=== PATIENT | female | born 1995 | race Caucasian/White ===

== ENCOUNTER → 2020-11-07 14:04 | Outpatient (CLI) | payer OTHER, SELFPAY ==
[2016-12-25 19:50] VITALS: BMI 24.2
[2020-11-07 16:07] LABS: hCG Titer Quant., Serum 42 mIU/mL (1-3)
== END ==
PROVIDERS: PCP Family Medicine; Visit Provider Obstetrics & Gynecology
DX: O20.0 Threatened abortion (principal); Z3A.00 Weeks of gestation of pregnancy not specified
CPT/HCPCS: 36415; 84702

== ENCOUNTER → 2020-11-09 08:53 | Outpatient (CLI) | payer OTHER, SELFPAY ==
[2020-11-09 14:25] LABS: hCG Titer Quant., Serum 13 mIU/mL (1-3)
== END ==
PROVIDERS: Obstetrics & Gynecology; PCP Family Medicine; Visit Provider Obstetrics & Gynecology
DX: O20.0 Threatened abortion (principal); Z3A.00 Weeks of gestation of pregnancy not specified
CPT/HCPCS: 36415; 84702

== ENCOUNTER → 2021-01-26 | Outpatient (CLI) | payer OTHER, SELFPAY ==
[2016-12-25 19:50] VITALS: BMI 24.2
[2021-01-31 13:12] LABS: HPV Reflexed? NOT INDICATED
== END | disposition home or self-care (01) ==
LOC: LABSPEC 16:01
PROVIDERS: Visit Provider Obstetrics & Gynecology
DX: Z12.4 Encounter for screening for malignant neoplasm of cervix (principal)
CPT/HCPCS: 88175; G0145

== ENCOUNTER → 2021-08-14 16:23 | Outpatient (CLI) | payer OTHER, SELFPAY ==
[2021-08-14 17:47] LABS: Absolute Lymphocyte Count 1.95 X10^3/uL (0.83-4.51); Absolute Neutrophil Count 4.9 X10^3/uL (2.0-7.7); Basophil# 0.02 X10^3/uL; Basophil% 0.3 % (0-1); Eosinophil# 0.07 X10^3/uL; Eosinophils% 0.9 % (0-5); Hematocrit 38.3 % (37-47); Lymphocyte # 1.95 X10^3/ul (0.83-4.51); Lymphocyte % 26.1 % (19-41); Mean Corp Hgb Conc 33.9 g/dL (32-36); Mean Corpuscular Hgb 28.1 pg (27.0-32.0); Mean Corpuscular Volume 82.7 fL (81-99); Mean Platelet Vol. 11.5 fl (6.2-12.0); Monocyte# 0.47 X10^3/uL; Monocyte% 6.3 % (0-10); NRBC Flagged by Analyzer 0 % (0-5); Neutrophil # 4.94 X10^3/uL (2.7-7.7); Neutrophil % 66.1 % (47-70); Platelet Count 213 K/mm3 (150-450); RBC Distribution Width CV 11.9 % (11.6-14.6); RBC Distribution Width SD 35.8 fl (35.1-43.9); Red Blood Count 4.63 M/mm3 (4.2-5.4); White Blood Count 7.5 K/mm3 (4.4-11.0)
[2021-08-15 09:38] LABS: HIV - WCH Non-Reactive (Nonreactive); Hepatitis B Surface Antigen Non-Reactive (Nonreactive); Hepatitis C Antibody Non-Reactive (Nonreactive); Syphilis Antibodies Non-reactive
[2021-08-20 00:06] LABS: Chlamydia By Nucleic Acid AMP Negative (Negative)
[2021-08-20 13:40] LABS: Gonococcus By Nucleic Acid AMP Negative (Negative)
== END ==
PROVIDERS: Visit Provider Obstetrics & Gynecology
DX: Z34.81 Encounter for supervision of other normal pregnancy, first trimester (principal); Z11.3 Encounter for screening for infections with a predominantly sexual mode of transmission
CPT/HCPCS: 36415; 85025; 86703; 86762; 86780; 86803; 87086; 87088; 87340; 87491; 87591

== ENCOUNTER 2022-01-03 08:38 | Outpatient (CLI) | payer OTHER, SELFPAY ==
[2022-01-03 09:32] LABS: Hematocrit 34.9 % (37-47); Hemoglobin 11.6 g/dL (12.0-15.0); Mean Corp Hgb Conc 33.2 g/dL (32-36); Mean Corpuscular Hgb 29.5 pg (27.0-32.0); Mean Corpuscular Volume 88.8 fL (81-99); Mean Platelet Vol. 10.8 fl (6.2-12.0); Platelet Count 144 K/mm3 (150-450); RBC Distribution Width CV 12.3 % (11.6-14.6); RBC Distribution Width SD 40.3 fl (35.1-43.9); Red Blood Count 3.93 M/mm3 (4.2-5.4)
[2022-01-03 09:38] LABS: Glucose Challenge Gest 1H 50g 98 mg/dL (70-140)
== END 2022-01-03 23:59 | disposition home or self-care (01) ==
LOC: WOBLAB 08:39
PROVIDERS: Visit Provider Obstetrics & Gynecology
DX: Z34.83 Encounter for supervision of other normal pregnancy, third trimester (principal)
CPT/HCPCS: 36415; 82950; 85027

== ENCOUNTER → 2022-02-26 | Outpatient (CLI) | payer OTHER, SELFPAY ==
[2022-02-26 17:31] LABS: Hematocrit 36.9 % (37-47); Hemoglobin 12.4 g/dL (12.0-15.0); Mean Corp Hgb Conc 33.6 g/dL (32-36); Mean Corpuscular Hgb 29.5 pg (27.0-32.0); Mean Corpuscular Volume 87.9 fL (81-99); Mean Platelet Vol. 11.3 fl (6.2-12.0); Platelet Count 138 K/mm3 (150-450); RBC Distribution Width CV 13.1 % (11.6-14.6); RBC Distribution Width SD 41.5 fl (35.1-43.9)
== END | disposition home or self-care (01) ==
LOC: WOBLAB 16:20
PROVIDERS: Visit Provider Obstetrics & Gynecology
DX: O36.8290 Fetal anemia and thrombocytopenia, unspecified trimester, not applicable or unspecified (principal); Z36.85 Encounter for antenatal screening for Streptococcus B; Z3A.00 Weeks of gestation of pregnancy not specified
CPT/HCPCS: 36415; 85027; 87077; 87081; 87186

== ENCOUNTER 2022-03-25 11:05 | Inpatient (IN) | payer OTHER, SELFPAY ==
[2022-03-25] VITALS (52 sets, daily range): BP systolic 89–130; BP diastolic 53–84; PULSE 78–155; TEMP 35.8–36.8; O2SAT 81–99; BMI 32.8
[2022-03-25 11:03] LABS: ROM Internal Control Test YES-OK TO RESULT pt. (Internal QC)
[2022-03-25 11:04] LABS: ROM Patient Test POSITIVE (Negative)
[2022-03-25] MEDS: Lactated Ringers 1,000 ML 50 ML IV (11:28)
[2022-03-25 11:44] LABS: Absolute Lymphocyte Count 1.06 X10^3/uL (0.83-4.51); Absolute Neutrophil Count 5.4 X10^3/uL (2.0-7.7); Basophil# 0.01 X10^3/uL; Basophil% 0.1 % (0-1); Eosinophil# 0.07 X10^3/uL; Hematocrit 37.6 % (37-47); Hemoglobin 12.8 g/dL (12.0-15.0); Lymphocyte # 1.06 X10^3/ul (0.83-4.51); Lymphocyte % 15.1 % (19-41); Mean Corpuscular Hgb 29.2 pg (27.0-32.0); Mean Corpuscular Volume 85.6 fL (81-99); Mean Platelet Vol. 10.8 fl (6.2-12.0); Monocyte# 0.48 X10^3/uL; Monocyte% 6.8 % (0-10); NRBC Flagged by Analyzer 0 % (0-5); Neutrophil # 5.36 X10^3/uL (2.7-7.7); Neutrophil % 76.3 % (47-70); Platelet Count 134 K/mm3 (150-450); RBC Distribution Width CV 13.2 % (11.6-14.6); RBC Distribution Width SD 40.9 fl (35.1-43.9); Red Blood Count 4.39 M/mm3 (4.2-5.4)
--- NOTE | 2022-03-25 12:54 | HP.PCM.OB_ITS ---
HPI - General General Date of Admission: 03/25/22 Date of Service: 03/25/22 Chief Complaint: leaking of fluid HPI Narrative KAROL HOLDER, is a 26 F @ 39 6/7 weeks gestation by LMP 06/19/21 (MONIE 03/26/22) who presents with c/o leaking of amniotic fluid since 0445h this morning. Fluid is clear. Denies contractions or vaginal bleeding. + FM. Denies headache, vision changes. PFSH PFSH Medical History Gestational thrombocytopenia Home Medications umipygvw-[id number]-Kc-FA 1 mg tablet 1 tab PO DAILY 03/25/22 [History Last Taken 03/24/22] Allergy/AdvReac Type Severity Reaction Status Date / Time No Known Allergies Allergy Verified 03/25/22 11:40 Family History (Updated 03/25/22 @ 12:[address] Bee Lanier MD) Grandmother Breast cancer Other Heart disease Surgical History History of appendectomy Social History (Updated 03/25/22 @ 12:[address] Bee Lanier MD) Smoking Status: Never smoker alcohol intake: never substance use type: does not use History 2 Elective abortions Hx Para 0 Spontaneous abortions 1 Hx # Term Pregnancies Ectopic pregnancies Hx # Pregnancies Multiple births # of living children NST FHR Rate Baby A Baseline: 120 Variability:: Moderate Accelerations:: 15 x 15 Decelerations:: None NST Reactive:: Yes FHR Category:: Category I Uterine Activity:: 10/01 Vital Signs Vital Signs Vital Signs: 03/25/22 10:47 03/25/22 10:47 03/25/22 11:30 Temperature 98.2 F Temperature Source Pulse Rate 104 H Blood Pressure 114/78 BP Systolic 114 BP Diastolic 78 03/25/22 11:30 Temperature Temperature Source Temporal Pulse Rate Blood Pressure BP Systolic BP Diastolic Weight Weight: 100.97 kg Body Mass Index (BMI) 32.8 Physical Exam Const alert, oriented x3 and no apparent distress HEENT normocephalic Resp normal respiratory effort, normal air movement and clear to auscultation bilaterally Cardio regular rate and regular rhythm GI normal to inspection, nondistended, normoactive bowel sounds, soft to palpation, non-tender and non-distended Inspection: gravid Narrative: Recent SVE /-2 per RN Joan Hutchison I performed bedside US confirming cephalic presentation, anterior fundal placent a Labs Labs Labs: Blood Type A POSITIVE Antibody Screen Pending Hct 37.6 % (37-47) Hgb 12.8 g/dL (12.0-15.0) Syphilis Total Ab Non-reactive Hep Bs Antigen Non-Reactive (Nonreactive) Chlamydia DNA (GOYO) Negative (Negative) Neisseria gonorrhoeae DNA (GOYO) Negative (Negative) HIV 1&2 Antibody Non-Reactive (Nonreactive) Glucose 1 Hr 50 gm 98 mg/dL (70-140) Assessment & Plan (1) 39 weeks gestation of : (2) PROM (premature rupture of membranes): PLAN: Plan GBS positive - PCN started Advised pitocin with review of indications, risks, benefits, alternatives. Reviewed increased risk for infection with prolonged rupture of membranes including non-GBS infection risk. Patient declines pitocin at this time. Requests expectant management Encouraged to do nipple stim in interim if not doing pitocin. Will reassess at approximatley 12 hours of ROM
[2022-03-25] MEDS: Penicillin G 3,000,000 Units 50 ML 100 UNITS IV ×2 (16:08→20:48)
[2022-03-25] MEDS: 0.9% Saline Lock 10 ML Syringe IV (16:15)
--- NOTE | 2022-03-25 21:07 | PN.OBGYN_ITS ---
Subjective Subjective Reports feeling pressure Objective Data Objective Data Vital Signs: Vital Signs Temp Pulse BP Pulse Ox 97.2 F L 93 98/53 L 97 03/25/22 19:15 03/25/22 20:36 03/25/22 19:14 03/25/22 20:36 Weight: 100.97 kg Body Mass Index (BMI) 32.8 Intake & Output: Intake and Output for Last 24 Hours 03/23/22 03/24/22 03/25/22 23:59 23:59 23:59 Intake Total 756.67 / 756.67 Output Total 100 / 100 Balance 656.67 / 656.67 Lab / Micro Data Result Diagrams: 03/25/22 11:28 Labs: Laboratory Results - last 24 hr 03/25/22 10:50: Vag Amniotic Fld Detect POSITIVE H 03/25/22 11:28: WBC 7.0, RBC 4.39, Hgb 12.8, Hct 37.6, MCV 85.6, MCH 29.2, MCHC 34.0, RDW Std Deviation 40.9, RDW Coeff of Efrain 13.2, Plt Count 134 L, MPV 10.8, Immature Gran % (Auto) 0.700, Neut % (Auto) 76.3 H, Lymph % (Auto) 15.1 L, [place] % (Auto) 6.8, Eos % (Auto) 1.0, Baso % (Auto) 0.1, Absolute Neuts (auto) 5.4, Absolute Lymphs (auto) 1.06, Nucleated RBC % 0 03/25/22 11:28: Blood Type A POSITIVE, Antibody Screen NEGATIVE Micro: Microbiology 03/25/22 11:35 Nasal Secretion SARS-CoV-2 Antigen (Rapid) - Final Physical Exam Narrative GEN - NAD, AAO x 3 FHR - 120, moderate variability, + accelerations, no decelerations 5/90/-1 TOCO 3/10 min Assessment & Plan (1) 39 weeks gestation of : PLAN: Active labor, Cat I FHR Continue expectant management PCN for GBS ppx (2) PROM (premature rupture of membranes):
[2022-03-25] MEDS: LACTATED RINGERS 500 ML 999 ML IV (22:15)
[2022-03-25] MEDS: fentaNYL-bupivacaine (epidural) 100 ML BAG EPIDURAL (23:20)
[2022-03-26] VITALS (45 sets, daily range): BP systolic 97–135; BP diastolic 48–68; PULSE 79–109; RESP 16; TEMP 36.2–37.2; O2SAT 92–100
[2022-03-26] MEDS: Penicillin G 3,000,000 Units 50 ML 100 UNITS IV ×2 (00:19→04:36)
[2022-03-26] MEDS: Mag Hydrox/Al Hydrox/Simeth 30 ML UDC PO ×2 (00:25→04:36)
[2022-03-26] MEDS: Lactated Ringers 1,000 ML 200 ML IV (02:53)
[2022-03-26] MEDS: fentaNYL-bupivacaine (epidural) 100 ML BAG EPIDURAL (04:24)
[2022-03-26] MEDS: Oxytocin 30 units/NS 500 ml 30 UNITS/500 ML IV.SOLN 334 UNITS IV (06:54)
--- NOTE | 2022-03-26 07:21 | EX.PCM.OBRPT ---
Assessment & Plan (1) 40 weeks gestation of : (2) (spontaneous vaginal delivery): Vaginal Delivery Maternal Presentation Maternal Presentation: Spontaneous Rupture of Membranes Maternal Presentation: PROM Type of Induction: - (nipple stimulation) Operative Information Date of Procedure: 03/26/22 Pre-Operative Diagnosis: 40 weeks gestation Premature rupture of membranes Post-Operative Diagnosis: 40 weeks gestation Premature rupture of membranes Surgery / Procedure Performed: Spontaneous Vaginal Delivery Type of Anesthesia: Epidural Drain: - (straight cath) Estimated Blood Loss: 300 ml Time of Delivery: 06:43 Findings Description of Procedure: Patient was FD/+4 station. Pushed to deliver a vigorous male . was placed on the maternal abdomen and further attended by nursery personnel. The cord was doubly clamped and cut at 4 minutes of life. The placenta delivered spontaneously and appeared intact on inspection. A second degree perineal laceration was repaired with 3-0 Vicryl Rapide. The fundus was firm and there was good hemostasis. Sponge and needle counts correct x 2. Presentation: Vertex Amniotic Membrane Rupture Type: Spontaneous Time of Membrane Rupture: 03/25/22 0445h Amniotic Fluid Description: Clear Placental Delivery Description: Spontaneous Placenta Disposition: [facility] Cord Vessel Description: 3 Vessels Cord Entanglement: None Nuchal Cord Compression: Without compression A Gender: Male (1 minute): 9 (5 minute): 9 Delayed Cord Clamping: Yes Post Vaginal Delivery Medications Given After Delivery: IV Pitocin Laceration: Midline, Perineal Extension/lac, Vaginal Extension/lac and 2nd degree
[2022-03-26] MEDS: 0.9% Saline Lock 10 ML Syringe IV ×2 (09:26→21:40)
[2022-03-26] MEDS: Acetaminophen 500 MG Tablet 1000 MG PO (10:13)
[2022-03-26] MEDS: Ibuprofen 600 MG Tablet PO ×2 (12:06→20:12)
--- NOTE | 2022-03-26 15:30 | NURSING ---
This RN in room to perform fundal check and vitals. Abdomen distended and firm. Patient reports pain when abdomen is pushed on. Assisted patient to bathroom to void ~ 800 mL out. Reassessed fundus at the umbilicus. Abdomen still somewhat firm. Dr. Damian Oliver notified. Order to place dominguez catheter to let bladder rest. Monitor output.
[2022-03-26] MEDS: Benzocaine/Lanolin/Aloe Vera 1 SPRAY EACH TOPICAL (21:38)
[2022-03-27 00:40] VITALS: BP 102/56; PULSE 82; RESP 16; TEMP 36.6; O2SAT 93
[2022-03-27] MEDS: Ibuprofen 600 MG Tablet PO ×2 (04:18→11:53)
[2022-03-27 04:23] VITALS: BP 106/56; PULSE 71; RESP 16; TEMP 36.2; O2SAT 98
--- NOTE | 2022-03-27 09:01 | PCM.PN.OB ---
Subjective Subjective Patient without complaints. Breast-feeding going well. Wants to go home today. Objective Data Objective Data Vital Signs: Vital Signs Temp Pulse Resp BP Pulse Ox O2 Del Method 97.1 F L 71 16 106/56 L 98 Room Air 03/27/22 04:23 03/27/22 04:23 03/27/22 04:23 03/27/22 04:23 03/27/22 04:23 03/27/22 04:23 Oxygen Delivery Method Room Air Weight: 222 lb 9.6 oz Body Mass Index (BMI) 32.8 Intake & Output: Intake and Output for Last 24 Hours 03/25/22 03/26/22 03/27/22 23:59 23:59 23:59 Intake Total 1306.67 / 1306.67 2870.00 / 2870.00 Output Total 100 / 100 4850 / 4850 Balance 1206.67 / 1206.67 -1980.00 / -1980.00 Lab / Micro Data Result Diagrams: 03/25/22 11:28 Micro: Microbiology 03/25/22 11:35 Nasal Secretion SARS-CoV-2 Antigen (Rapid) - Final Assessment & Plan (1) (spontaneous vaginal delivery): PLAN: Doing well day #1 status post routine spontaneous vaginal delivery. Will discharge to home with routine instructions.
--- NOTE | 2022-03-27 09:03 | DCINST_ITS ---
Discharge Instructions Diet Discharge Diet: No restrictions Activity Discharge Activity: May Drive (In 1 to 2 days if not taking narcotic pain medication), May Shower and May Take a Tub Bath May resume sexual activity in: 4-6 weeks Additional Activity Instructions:: Nothing in the vagina for 4-6 weeks. You may return to work/school in 6 weeks. Dressing / Incision Call your doctor if you observe: Fever of 101 or Higher, Inability to urinate, Inability to have a bowel movement and Using more than 1 pad per hour Follow Up Care When: Call [phone] to make an appointment with your doctor in 6 weeks. Test Results: Test results from this visit will be discussed in further detail at your follow- up appointment, if applicable. Discharge Plan Admission Admit Date/Time: 03/25/22 11:05 Primary Reason for Your Visit: Vaginal Delivery Attending Provider: Bee Martin Discharge Orders/Prescriptions Prescriptions: No Action 1 1 mg Tablet 1 tab PO DAILY Disposition Disposition (needs filled in before D/C Order can be placed): Home, Self Care
[2022-03-27 09:40] VITALS: BP 112/64; PULSE 89; RESP 16; TEMP 35.7
--- NOTE | 2022-03-27 12:02 | NURSING ---
Two tablets of 600mg Motrin tablets given @ 1153. medication scanned and verified prior to administration. computer recognized scanning of two 600 mg Motrin tablets but did not document both scanned. pt took both with RN at bedside before error was recognized. @ 1153 pt took 1200 mg of Motrin.
[2022-03-27 13:34] VITALS: BP 109/68; PULSE 69; RESP 17; TEMP 36.4
--- NOTE | 2022-04-03 16:03 | NURSING ---
Doing well on follow up , andrea Parrish and had good experience.
== END 2022-03-27 16:00 | disposition home or self-care (01) | DRG 806 ==
LOC: WPOUT 11:09 → WP 11:09
PROVIDERS: Admitting Provider Obstetrics & Gynecology; Referring Provider Obstetrics & Gynecology; Visit Provider Obstetrics & Gynecology
DX: O42.92 Full-term premature rupture of membranes, unspecified as to length of time between rupture and onset of labor (principal); Z37.0 Single live birth; O98.82 Other maternal infectious and parasitic diseases complicating childbirth; Z3A.40 40 weeks gestation of pregnancy; B95.1 Streptococcus, group B, as the cause of diseases classified elsewhere; O70.1 Second degree perineal laceration during delivery; O69.81X0 Labor and delivery complicated by cord around neck, without compression, not applicable or unspecified
CPT/HCPCS: 59025; 59050; 76815; 84112; 85025; 86850; 86900; 86901; 87426; 99218; J7120; A4216; G0378

== ENCOUNTER → 2023-12-23 | Outpatient (CLI) | payer OTHER, SELFPAY ==
[2023-12-26 07:08] LABS: Chlamydia By Nucleic Acid AMP Negative (Negative); Gonococcus By Nucleic Acid AMP Negative (Negative)
[2023-12-30 19:14] LABS: HPV Reflexed? NOT INDICATED
== END | disposition home or self-care (01) ==
LOC: LABSPEC 16:58
PROVIDERS: Referring Provider Obstetrics & Gynecology; Visit Provider Obstetrics & Gynecology
DX: Z34.90 Encounter for supervision of normal pregnancy, unspecified, unspecified trimester (principal)
CPT/HCPCS: 87086; 87088; 87491; 87591; 88175; G0145

== ENCOUNTER → 2024-01-23 | Outpatient (CLI) | payer OTHER, SELFPAY ==
[2024-01-23 13:10] LABS: Absolute Lymphocyte Count 1.21 X10^3/uL (0.83-4.51); Absolute Neutrophil Count 4.4 X10^3/uL (2.0-7.7); Basophil# 0.02 X10^3/uL; Basophil% 0.3 % (0-1); Eosinophil# 0.05 X10^3/uL; Eosinophils% 0.8 % (0-5); Hematocrit 35.3 % (37-47); Hemoglobin 12.3 g/dL (12.0-15.0); Lymphocyte # 1.21 X10^3/ul (0.83-4.51); Mean Corp Hgb Conc 34.8 g/dL (32-36); Mean Corpuscular Hgb 28.7 pg (27.0-32.0); Mean Corpuscular Volume 82.3 fL (81-99); Mean Platelet Vol. 11.8 fl (6.2-12.0); Monocyte# 0.32 X10^3/uL; Monocyte% 5.3 % (0-10); NRBC Flagged by Analyzer 0 % (0-5); Neutrophil # 4.42 X10^3/uL (2.7-7.7); Neutrophil % 73.3 % (47-70); Platelet Count 173 K/mm3 (150-450); RBC Distribution Width CV 12.8 % (11.6-14.6); RBC Distribution Width SD 38.2 fl (35.1-43.9); Red Blood Count 4.29 M/mm3 (4.2-5.4)
[2024-01-23 13:54] LABS: Hemoglobin A1c 4.8 % (3.8-5.6)
[2024-01-23 14:32] LABS: HIV - WCH Non-Reactive (Nonreactive); Hepatitis B Surface Antigen Non-Reactive (Nonreactive); Hepatitis C Antibody Non-Reactive (Nonreactive); Rubella IgG Reactive (Nonreactive); Syphilis Antibodies Non-reactive
== END | disposition home or self-care (01) ==
LOC: LAB 11:54
PROVIDERS: PCP Physician Assistant; Referring Provider Obstetrics & Gynecology; Visit Provider Obstetrics & Gynecology
DX: Z34.90 Encounter for supervision of normal pregnancy, unspecified, unspecified trimester (principal)
CPT/HCPCS: 36415; 83036; 85025; 86703; 86762; 86780; 86803; 86850; 86900; 86901; 87340

== ENCOUNTER → 2024-03-10 | Outpatient (CLI) | payer OTHER, SELFPAY | END | disposition home or self-care (01) | LOC: LAB 16:08 | PROVIDERS: PCP Physician Assistant; Referring Provider Advanced Practice Midwife; Visit Provider Advanced Practice Midwife | DX: Z34.90 Encounter for supervision of normal pregnancy, unspecified, unspecified trimester (principal); Z3A.00 Weeks of gestation of pregnancy not specified | CPT/HCPCS: 36415 ==

== ENCOUNTER → 2024-04-15 | Outpatient (CLI) | payer OTHER, SELFPAY ==
[2024-04-15 13:50] LABS: Absolute Lymphocyte Count 1.31 X10^3/uL (0.83-4.51); Absolute Neutrophil Count 5.1 X10^3/uL (2.0-7.7); Basophil# 0.01 X10^3/uL; Basophil% 0.1 % (0-1); Eosinophil# 0.09 X10^3/uL; Eosinophils% 1.3 % (0-5); Hematocrit 32.5 % (37-47); Hemoglobin 10.9 g/dL (12.0-15.0); Lymphocyte # 1.31 X10^3/ul (0.83-4.51); Lymphocyte % 18.7 % (19-41); Mean Corp Hgb Conc 33.5 g/dL (32-36); Mean Corpuscular Hgb 28.8 pg (27.0-32.0); Mean Corpuscular Volume 85.8 fL (81-99); Mean Platelet Vol. 10.7 fl (6.2-12.0); Monocyte# 0.41 X10^3/uL; Monocyte% 5.9 % (0-10); NRBC Flagged by Analyzer 0 % (0-5); Neutrophil # 5.11 X10^3/uL (2.7-7.7); Neutrophil % 73.1 % (47-70); Platelet Count 145 K/mm3 (150-450); RBC Distribution Width CV 13.2 % (11.6-14.6); RBC Distribution Width SD 41.3 fl (35.1-43.9); Red Blood Count 3.79 M/mm3 (4.2-5.4)
[2024-04-15 14:13] LABS: Glucose Challenge Gest 1H 50g 102 mg/dL (70-140)
[2024-04-15 14:57] LABS: HIV - WCH Non-Reactive (Nonreactive); Syphilis Antibodies Non-reactive
== END | disposition home or self-care (01) ==
PROVIDERS: PCP Physician Assistant; Referring Provider Nurse Practitioner Women's Health; Visit Provider Nurse Practitioner Women's Health
DX: Z34.92 Encounter for supervision of normal pregnancy, unspecified, second trimester (principal); Z3A.22 22 weeks gestation of pregnancy
CPT/HCPCS: 36415; 82950; 85025; 86703; 86780

== ENCOUNTER → 2024-06-25 | Outpatient (CLI) | payer OTHER, SELFPAY ==
[2024-06-25 09:46] LABS: Absolute Lymphocyte Count 1.09 X10^3/uL (0.83-4.51); Absolute Neutrophil Count 4.7 X10^3/uL (2.0-7.7); Basophil# 0.01 X10^3/uL; Basophil% 0.2 % (0-1); Eosinophil# 0.09 X10^3/uL; Eosinophils% 1.4 % (0-5); Hematocrit 34.6 % (37-47); Hemoglobin 11.6 g/dL (12.0-15.0); Lymphocyte # 1.09 X10^3/ul (0.83-4.51); Lymphocyte % 16.8 % (19-41); Mean Corp Hgb Conc 33.5 g/dL (32-36); Mean Corpuscular Hgb 29.4 pg (27.0-32.0); Mean Corpuscular Volume 87.6 fL (81-99); Mean Platelet Vol. 10.5 fl (6.2-12.0); Monocyte# 0.58 X10^3/uL; Monocyte% 8.9 % (0-10); NRBC Flagged by Analyzer 0 % (0-5); Neutrophil # 4.67 X10^3/uL (2.7-7.7); Neutrophil % 71.9 % (47-70); Platelet Count 104 K/mm3 (150-450); RBC Distribution Width CV 14.2 % (11.6-14.6); RBC Distribution Width SD 45.3 fl (35.1-43.9); Red Blood Count 3.95 M/mm3 (4.2-5.4); White Blood Count 6.5 K/mm3 (4.4-11.0)
== END | disposition home or self-care (01) ==
LOC: LAB 09:13 → LABSPEC 12:19
PROVIDERS: PCP Physician Assistant; Referring Provider Registered Nurse; Visit Provider Registered Nurse
DX: Z34.82 Encounter for supervision of other normal pregnancy, second trimester (principal)
CPT/HCPCS: 36415; 85025; 87077; 87081; 87186

== ENCOUNTER 2024-07-19 23:20 | Inpatient (IN) | payer OTHER, SELFPAY ==
[2024-07-19] VITALS (8 sets, daily range): BP systolic 122; BP diastolic 73; PULSE 80–99; RESP 14; TEMP 36.4; O2SAT 94–98; BMI 36.3
[2024-07-19 23:17] LABS: ROM Internal Control Test YES-OK TO RESULT pt. (Internal QC)
[2024-07-19 23:19] LABS: ROM Patient Test POSITIVE (Negative)
[2024-07-19] MEDS: Lactated Ringers 1,000 ML 50 ML IV (23:53)
[2024-07-19] MEDS: Penicillin G Pot 5,000,000 UNITS in 0.9% Normal Saline (100mL MB+) 100 ML 100 UNITS IV (23:53)
[2024-07-20] VITALS (42 sets, daily range): BP systolic 105–132; BP diastolic 55–74; PULSE 75–99; RESP 16; TEMP 36.4–37.1; O2SAT 92–100
[2024-07-20 00:30] LABS: Absolute Lymphocyte Count 1.24 X10^3/uL (0.83-4.51); Absolute Neutrophil Count 8.1 X10^3/uL (2.0-7.7); Basophil# 0.02 X10^3/uL; Basophil% 0.2 % (0-1); Eosinophil# 0.04 X10^3/uL; Eosinophils% 0.4 % (0-5); Hematocrit 38.2 % (37-47); Hemoglobin 13.2 g/dL (12.0-15.0); Lymphocyte # 1.24 X10^3/ul (0.83-4.51); Lymphocyte % 12.3 % (19-41); Mean Corp Hgb Conc 34.6 g/dL (32-36); Mean Corpuscular Hgb 29.6 pg (27.0-32.0); Mean Corpuscular Volume 85.7 fL (81-99); Mean Platelet Vol. 10.7 fl (6.2-12.0); Monocyte# 0.62 X10^3/uL; Monocyte% 6.1 % (0-10); NRBC Flagged by Analyzer 0 % (0-5); Neutrophil # 8.14 X10^3/uL (2.7-7.7); Neutrophil % 80.4 % (47-70); Platelet Count 113 K/mm3 (150-450); RBC Distribution Width CV 13.8 % (11.6-14.6); RBC Distribution Width SD 42.5 fl (35.1-43.9); Red Blood Count 4.46 M/mm3 (4.2-5.4); White Blood Count 10.1 K/mm3 (4.4-11.0)
[2024-07-20 01:00] LABS: Syphilis Antibodies Non-reactive
[2024-07-20] MEDS: Oxytocin 10 UNITS/ML Vial IM (01:55)
[2024-07-20] MEDS: Oxytocin 15 Units/NS 250ml 15 UNITS/250 ML IV.SOLN 83 UNITS IV (01:59)
[2024-07-20] MEDS: Lidocaine 1% (20 ml mdv) 20 ML Vial INFILT (02:04)
--- NOTE | 2024-07-20 02:18 | HP.PCM.OB_ITS ---
HPI - General General Date of Admission: 07/19/24 Date of Service: 07/20/24 HPI Narrative KAROL HOLDER, is a 29 F 40.1 weeks who presents in labor and SROM. Admission labs and plan treatment for positive GBS Maternal Data Information MONIE Calculator Estimated Delivery Date Method Current WG Current Estimate 07/18/24 Ultrasound #1 40w 2d Other Estimates 07/25/24 LMP (Certain) 39w 2d Final MONIE: 07/18/24 Final MONIE Source: US >20 weeks Gestational age: 40.2 weeks PFSH PFSH Medical History (spontaneous vaginal delivery) 40 weeks gestation of PROM (premature rupture of membranes) 39 weeks gestation of Gestational thrombocytopenia Home Medications ?Medication ?Instructions ?Recorded ?Last Taken ?Type niumyyzf-epz-Wi-FA 1 mg 1 tab PO DAILY 03/25/22 03/24/22 History tablet Allergy/AdvReac Type Severity Reaction Status Date / Time No Known Allergies Allergy Verified 07/19/24 22:35 Family History Grandmother Breast cancer, Onset Age: 60 Other Heart disease Surgical History History of appendectomy Social History adopted: No household members: spouse and children housing: house number of children: 1 current occupational status: employed current occupation: [employer] current occupational exposures/hazards: No pets and animals: Yes pets and animals: cat(s) history of recent travel: No sexually active: Yes Smoking Status: Never smoker alcohol intake: never substance use type: does not use well-balanced diet: daily or most days caffeine: Yes Type: coffee eating out: 1-3 times/week during the past year weight has: remained stable what type of physical activity do you participate in: walking and weight training frequency: 3-4 times per week duration: 30-45 minutes/day seatbelt use: always do you feel safe at home: Yes additional social history: - [employer]: [employer] History 3 Elective abortions Hx Para 1 Spontaneous abortions 1 Hx # Term Pregnancies Ectopic pregnancies Hx # Pregnancies Multiple births # of living children 1 Past Pregnancies Del. Date Name GA/Weeks Outcome Route Bth Weight Gen Labor Lgth Anesthesia Del Locatn Provider FOB 10/23/20 6 spontaneous 03/26/22 Dre 40 live - full term 8lb 14oz Male 26ho urs epidural [facility] Dr Juventino Brush Visit Details Expected Delivery Route/Plan Labor Preferences- CB/BF classes: declined labor support person: [] labor intervention preferences: [] pain management options preferred: [] cut cord/dad catch: yes : yes PP control planned: [] discussed possible routes of delivery and associated risks: [] special requests: [] Plans Covid status: [] Flu vaccine: [] Tdap vaccine: declined Rhogam: na LARC form signed: declined Problem list reviewed and updated with the most current plan of care details and appropriate orders placed. Relevant counseling for the gestational age provided. Continue routine care and follow up unless otherwise noted in visit notes/problem list details OB Flowsheet Initial Weight: Not Recorded Date -?-?-?-?-?-?-?-?-?-?-?-?- EGA Weight BP Urine Prot -?-?-?-?-?-?-?-?-?-?-?-?- Glucose FHR FuHt Pres Dilation -?-?-?-?-?-?-?-?-?-?-?-?- Effaced St Visit Note 12/23/23 -?-?-?-?-?-?-?-?-?-?-?-?- 10w 2d 207 lb 106/71 -?-?-?-?-?-?-?-?-?-?-?-?- 150 -?-?-?-?-?-?-?-?-?-?-?-?- JV- CRL measurin g 1 week over LMP monie. declines NIPT. 01/21/24 -?-?-?-?-?-?-?-?-?-?-?-?- 14w 3d 205 lb 8 oz 114/72 Nega tive -?-?-?-?-?-?-?-?-?-?-?-?- Negative 158 -?-?-?-?-?-?-?-?-?-?-?-?- JV- no lof, vagi nal bleeding, or cramping. feeling fluttering feeling. 02/20/24 -?-?-?-?-?-?-?-?-?-?-?-?- 18w 5d 207 lb 2 oz 207 lb 2 oz 108/73 Negative -?-?-?-?-?-?-?-?-?-?-?-?- Negative 160 -?-?-?-?-?-?-?-?-?-?-?-?- kw- no vb/crampi ng. + flutters. declines AFP. US scheduled. 03/18/24 -?-?-?-?-?-?-?-?-?-?-?-?- 22w 4d 208 lb 108/74 Negative -?-?-?-?-?-?-?-?-?-?-?-?- Negative 154 -?-?-?-?-?-?-?-?-?-?-?-?- MH-No FB. Good F M. NIPT still pending. 28 wk Us scheduled 04/15/24 -?-?-?-?-?-?-?-?-?-?-?-?- 26w 4d 220 lb 6 oz 107/70 Nega tive -?-?-?-?-?-?-?-?-?-?-?-?- Negative 156 26 -?-?-?-?-?-?-?-?-?-?-?-?- JV- normal GCT. mild anemia. will start slow fe. rpt us at 28 weeks to look at placenta. 05/03/24 -?-?-?-?-?-?-?-?-?-?-?-?- 29w 1d 222 lb 2 oz 116/76 Nega tive -?-?-?-?-?-?-?-?-?-?-?-?- Negative 145 29 -?-?-?-?-?-?-?-?-?-?-?-?- KW- no vb/lof/ct x. good fm. Placenta no longer low-lying. 05/14/24 -?-?-?-?-?-?-?-?-?-?-?-?- 30w 5d 226 lb 106/70 Negative -?-?-?-?-?-?-?-?-?-?-?-?- Negative 140 31 -?-?-?-?-?-?-?-?-?-?-?-?- SM- no vb lof go od fm n oregular ctx 05/28/24 -?-?-?-?-?-?-?-?-?-?-?-?- 32w 5d 227 lb 121/77 Negative -?-?-?-?-?-?-?-?-?-?-?-?- Negative 150 33 -?-?-?-?-?-?-?-?-?-?-?-?- SM no vb lof goo d fm n oregular ctx 06/10/24 -?-?-?-?--?-?-?-?-?-?-?-?- 34w 4d 232 lb 8 oz 118/75 Nega tive -?-?-?-?-?-?-?-?-?-?-?-?- Negative 150 35 -?-?-?-?-?-?-?-?-?-?-?-?- JV- no lof, vagi nal bleeding, or dec fm. no complaints. 06/25/24 -?-?-?-?-?-?-?-?-?-?-?-?- 36w 5d 237 lb 115/73 Negative -?-?-?-?-?-?-?-?-?-?-?-?- Negative 157 36 Cephalic -?-?-?-?-?-?-?-?-?-?-?-?- LC- gbs obtained no vb/ctx/lof. declines ve. 07/01/24 -?-?-?-?-?-?-?-?-?-?-?-?- 37w 4d 238 lb 104/72 Negative -?-?-?-?-?-?-?-?-?-?-?-?- Negative 160 37 Cephalic -?-?-?-?-?-?-?-?-?-?-?-?- SM- no vb lof go od fm no regular ctx 07/08/24 -?-?-?-?-?-?-?-?-?-?-?-?- 38w 4d 240 lb 2 oz 114/73 Nega tive -?-?-?-?-?-?-?-?-?-?-?-?- Negative 150 39 Cephalic -?-?-?-?-?-?-?-?-?-?-?-?- KW-no vb/lof/ctx . good fm. 07/12/24 -?-?-?-?-?-?-?-?-?-?-?-?- 39w 1d 239 lb 2 oz 107/71 Nega tive -?-?-?-?-?-?-?-?-?-?-?-?- Negative 145 39 Cephalic 1 -?-?-?-?--?-?-?-?-?-?-?-?- 30 -4 JV- no lof , vaginal bleeding, or dec fm. last she went into labor at 40 weeks. labor precautions discussed. 07/19/24 -?-?-?-?-?-?-?-?-?-?-?-?- 40w 1d 240 lb 112/76 Negative -?-?-?-?-?-?-?-?-?-?-?-?- Negative 130 40 Cephalic 2 .5 -?-?-?-?-?-?-?-?-?-?-?-?- 50 -3 SM- no vb lof good fm no regular ctx SM- no vb lof good fm no reg ular ctx setup IOL 41 weeks membraes swept after couseling regarding risks NST FHR Rate Baby A Baseline: 120 Variability:: Moderate Accelerations:: 15 x 15 Decelerations:: None NST Reactive:: Yes FHR Category:: Category I Uterine Activity:: 2-3 minutes ROS Constitutional Constitutional: Denies change in weight, fatigue, fever(s), headache(s), poor appetite or weakness Eyes Eyes: Denies blurry vision, change in vision, floaters, seeing flashes or spots in vision ENT HEENT: Denies dizziness, headache(s), loss taste/smell or sore throat Cardiovascular Cardiovascular: Denies chest pain, dizziness, dyspnea, irregular heart rhythm, lightheadedness, palpitations or rapid heart rate Respiratory/Chest Respiratory/Chest: Denies change in mental status, chest tightness, cough, dyspnea or breast pain Gastrointestinal Gastrointestinal: Denies anorexia, chewing difficulty, constipation, diarrhea or weight changes Genitourinary Genitourinary: Denies difficulty urinating, dysuria, flank pain, genital pain, urinary frequency or urinary urgency Musculoskeletal Musculoskeletal: Denies back pain, difficulty walking, extremity pain, joint pain, muscle cramps or muscle weakness Integumentary Integumentary: Denies lesions or unusual bruising Neurologic Neurologic: Denies abnormal movements, abnormal speech, dizziness, numbness, seizure-like activity, syncope or weakness Psychiatric Psychiatric: Denies behavioral changes, change in appetite, confusion, depression, homicidal ideation, suicidal ideation or suicidal thoughts Endocrine Endocrinology: Denies excessive sweating, polydipsia or polyuria Hematologic/Lymphatic Hematologic/Lymphatic: Denies anemia Allergic/Immunologic Allergic/Immunologic: Denies itchy eyes, lip swelling, throat swelling, tongue swelling or wheezing Vital Signs Vital Signs Vital Signs: 07/19/24 22:38 07/19/24 22:38 07/19/24 22:41 Temperature Temperature Source Pulse Rate 98 Respiratory Rate Blood Pressure 122/73 H BP Systolic 122 BP Diastolic 73 Pulse Ox 97 07/19/24 22:41 07/19/24 22:41 07/19/24 22:41 Temperature Temperature Source Temporal Pulse Rate 96 Respiratory Rate 14 Blood Pressure BP Systolic BP Diastolic Pulse Ox 07/19/24 22:41 07/19/24 22:53 07/19/24 22:53 Temperature 97.5 F L Temperature Source Pulse Rate 97 Respiratory Rate Blood Pressure BP Systolic BP Diastolic Pulse Ox 97 07/19/24 23:17 07/19/24 23:17 07/19/24 23:22 Temperature Temperature Source Pulse Rate 99 94 Respiratory Rate Blood Pressure BP Systolic BP Diastolic Pulse Ox 97 07/19/24 23:22 07/19/24 23:23 10/28/24 23:23 Temperature Temperature Source Pulse Rate 88 Respiratory Rate Blood Pressure BP Systolic BP Diastolic Pulse Ox 94 97 07/19/24 23:28 07/19/24 23:28 07/19/24 23:33 Temperature Temperature Source Pulse Rate 96 80 Respiratory Rate Blood Pressure BP Systolic BP Diastolic Pulse Ox 96 07/19/24 23:33 07/20/24 00:40 07/20/24 00:40 Temperature Temperature Source Pulse Rate 98 Respiratory Rate Blood Pressure 127/74 H BP Systolic 127 BP Diastolic 74 Pulse Ox 98 07/20/24 00:40 07/20/24 00:40 07/20/24 00:40 Temperature Temperature Source Temporal Pulse Rate Respiratory Rate 16 Blood Pressure BP Systolic BP Diastolic Pulse Ox 94 07/20/24 00:40 Temperature 97.7 F L Temperature Source Pulse Rate Respiratory Rate Blood Pressure BP Systolic BP Diastolic Pulse Ox Weight Weight: 239 lb Body Mass Index (BMI) 36.3 Physical Exam Const alert, oriented x3 and no apparent distress General Appearance: cooperative Orientation / Consciousness: awake HEENT normocephalic Neck full ROM Lymph Lymphatic: no lymphadenopathy noted Chest inspection of chest normal Resp normal respiratory effort and normal air movement Effort and Inspection: able to speak in complete sentences and symmetric chest movement GI soft to palpation and non-tender Inspection: gravid Palpation: soft; Negative for tender external exam normal Manual OB Exam: dilated 3, effaced 90 and station -2 Back/Spine normal to inspection Extremity normal to inspection and full ROM Skin no rashes or lesions noted Psych mental status grossly normal Appearance: grossly normal Speech: normal speech Labs Labs Labs: Blood Type A POSITIVE Antibody Screen NEGATIVE Hct 38.2 % (37-47) Hgb 13.2 g/dL (12.0-15.0) Syphilis Total Ab Non-reactive Rubella IgG Antibody Reactive (Nonreactive) Hep Bs Antigen Non-Reactive (Nonreactive) Hepatitis C Antibody Non-Reactive (Nonreactive) Chlamydia DNA (GOYO) Negative (Negative) N.gonorrhoeae DNA (GOYO) Negative (Negative) HIV 1&2 Antibody Non-Reactive (Nonreactive) Glucose 1 Hr 50 gm 102 mg/dL (70-140) Rhogam given: No Assessment & Plan (1) Active labor: PLAN: Patient presents IAL, plan expectant management for , pitocin/AROM PRN if needed. Pain management: plans epidural. GBS positive plan IV PCN. Management of any complications: see problem list I have reviewed the [facility] and made any clinically relevant updates. Dr Menezes aware of assessment and plan, agrees with admission (2) SROM (spontaneous rupture of membranes): Charges/Coding Multi Select Codes Urinary/Genital Urinary/Genital CPT Codes: No Charge
--- NOTE | 2024-07-20 02:23 | EX.PCM.OBVAG ---
Assessment & Plan (1) Vaginal delivery: COMMENT: KW girl IAL (2) SROM (spontaneous rupture of membranes): (3) Positive GBS test: COMMENT: treat in labor (4) Anemia: COMMENT: OTC Fe daily. repeat cbc ordered 06/25- repeat improved h&h (5) Active labor: (6) Nuchal fold thickening on ultrasound: COMMENT: NIPT low risk. growth US ordered 34-36 weeks (7) Supervision of normal : QUALIFIERS: Normal : other normal Trimester: second trimester Qualified Code(s): Z34.82 - Encounter for supervision of other normal , second trimester COMMENT: PRR,, MONIE 07/25, girl PC: Dre, : [place] (8) : QUALIFIERS: Weeks of gestation: 40 weeks Qualified Code(s): Z3A.40 - 40 weeks gestation of COMMENT: Discussed genetic/carrier testing: NIPT. anatomy reviewed Maternal Data Information MONIE Calculator Estimated Delivery Date Method Current WG Current Estimate 07/18/24 Ultrasound #1 40w 2d Other Estimates 07/25/24 LMP (Certain) 39w 2d Final MONIE: 07/18/24 Final MONIE Source: US >20 weeks Gestational age: 40.2 Vaginal Delivery Maternal Presentation Maternal Presentation: Active Labor and Spontaneous Rupture of Membranes Maternal Presentation: Progressed well to 10cm dilated and made steady progress with effective maternal pushing. Delivered the head in OTONIEL presentation. The head was delivered atraumatically and no nuchal cord was identified. The anterior and posterior shoulders delivered without complication followed by the rest of the infant and the infant was placed on the maternal abdomen. Delayed cord clamping was employed for approximately 3 minutes. Cord was clamped and cut and gentle traction was applied to the cord and the placenta delivered spontaneously. Immediately following, it was noted to be intact with a 3 vessel cord. The perineum and vagina were inspected and noted to have a second degree laceration which numbed with 1% lidocaine and was repaired with 3-0 Vicryl in the usual fashion. Uterine bleeding stable. EBL was 100cc. Patient and tolerated delivery well. Apgars 9/9. Dr Almeida notified of vaginal delivery and orders reviewed. Physician agrees with current plan of care. Vaginal Delivery Information Procedure Performed: Spontaneous Vaginal Delivery Surgeon/Practitioner: Tania Powell Date of Procedure: 07/20/24 Pre-Procedure Diagnosis: see problem list Post-Procedure Diagnosis: see problem list Type of anesthesia: Local with 1% Lidocaine (for repair) Estimated Blood Loss: 100 Time of Delivery: 01:46 Findings Presentation: Vertex Amniotic Membrane Rupture Type: Spontaneous Amniotic Fluid Description: Clear Placental Delivery Description: Spontaneous Placenta Disposition: [facility] Cord Vessel Description: 3 Vessels Cord Entanglement: None Infant A Gender: Female (1 minute): 9 (5 minute): 9 Delayed Cord Clamping: Yes Agricultural Research Director crack off person: No Post Vaginal Deli Medications given after delivery: IM Pitocin Episiotomy Description: None Laceration: 2nd degree Complication Complications: No Multi Select Codes Urinary/Genital Urinary/Genital CPT Codes: 71558 Vaginal Delivery [facility]
--- NOTE | 2024-07-20 02:29 | DCINST_ITS ---
Discharge Instructions Diet Discharge Diet: No restrictions Activity Discharge Activity: Return to Normal Activity May resume sexual activity in: 6-8 weeks Dressing / Incision Call your doctor if you observe: Fever of 101 or Higher, Coldness, Increased Pain, Numbness or Tingling, Change in Color, Inability to urinate, Inability to have a bowel movement, Using more than 1 pad per hour, Shortness of breath, Dizziness, Fainting spells, Swelling in the ankles, Chest pain, Increased palpitations (irregular heartbeat), Calf discomfort and Uncontrolled pain Follow Up Care Please Follow Up With: Tania Powell CNM When: Please call the office to schedule your follow up appointment in 6 weeks. If you had high blood pressure please call to schedule an appointment in 2 weeks. Test Results: Test results from this visit will be discussed in further detail at your follow- up appointment, if applicable. Discharge Plan Admission Admit Date/Time: 07/19/24 23:15 Attending Provider: Tania Powell Primary Care Provider: Shireen Harris Discharge Orders/Prescriptions Prescriptions: No Action 1 1 mg Tablet 1 tab PO DAILY Referrals / Follow Up: Shireen Harris PA [Primary Care Provider] -
[2024-07-20] MEDS: Benzocaine/Lanolin/Aloe Vera 85 GM Spray 1 SPRAY TOPICAL (02:58)
[2024-07-20] MEDS: Acetaminophen 500 MG Tablet 1000 MG PO ×2 (02:58→09:43)
[2024-07-20] MEDS: Ibuprofen 600 MG Tablet PO ×3 (02:59→16:42)
[2024-07-20] MEDS: Senna/Docusate Sodium 1 Tablet PO (19:47)
[2024-07-21] VITALS (8 sets, daily range): BP systolic 107–112; BP diastolic 61–82; PULSE 69–86; RESP 15–16; TEMP 36.5–37; O2SAT 93–98
[2024-07-21] MEDS: Acetaminophen 500 MG Tablet 1000 MG PO ×3 (00:17→12:46)
--- NOTE | 2024-07-21 07:56 | PCM.PN.OB ---
Subjective Subjective Patient doing well without complaints. Tolerating PO. Ambulating and voiding without difficulty. Feeding well. Denies chest pain, shortness of breath, calf pain/swelling, fevers, chills, lightheadedness. Objective Data Objective Data Vital Signs: Vital Signs Temp Pulse Resp BP Pulse Ox O2 Del Method 98.6 F 83 15 112/65 94 Room Air 07/21/24 04:00 07/21/24 04:35 07/21/24 04:00 07/21/24 04:35 07/21/24 04:35 07/21/24 04:00 Oxygen Delivery Method Room Air Weight: 239 lb Body Mass Index (BMI) 36.3 Intake & Output: Intake and Output for Last 24 Hours 07/19/24 07/20/24 07/21/24 23:59 23:59 23:59 Intake Total 1355.00 / 1355.00 Output Total 500 / 500 Balance 855.00 / 855.00 Lab / Micro Data 07/19/24 23:50 Physical Exam Const alert and oriented x3 HEENT normocephalic Eyes PERRL Neck full ROM Resp normal respiratory effort GI soft to palpation GI Narrative: FF below U Assessment & Plan (1) Vaginal delivery: COMMENT: KW girl Angie IAL (2) Anemia: QUALIFIERS: Iron deficiency anemia type: unspecified iron deficiency Anemia type: iron deficiency Qualified Code(s): D50.9 - Iron deficiency anemia, unspecified COMMENT: OTC Fe daily. repeat cbc ordered 06/25- repeat improved h&h; stable pp PLAN: Plan s/p PPD # 1 1. routine post delivery care 2. breast feeding- support given 3. rh positive 4. rubella immune 5. Enc stool softener due 2 degree lac 6. home today
[2024-07-21] MEDS: Senna/Docusate Sodium 1 Tablet PO (12:46)
[2024-07-21] MEDS: Ibuprofen 600 MG Tablet PO (12:46)
== END 2024-07-21 13:30 | disposition home or self-care (01) | DRG 807 ==
LOC: WPOUT 23:31 → WP 07-20 01:53
PROVIDERS: Admitting Provider Advanced Practice Midwife; PCP Physician Assistant; Visit Provider Advanced Practice Midwife
DX: O70.1 Second degree perineal laceration during delivery (principal); Z37.0 Single live birth; B95.1 Streptococcus, group B, as the cause of diseases classified elsewhere; D50.9 Iron deficiency anemia, unspecified; Z3A.40 40 weeks gestation of pregnancy; O99.02 Anemia complicating childbirth; O99.824 Streptococcus B carrier state complicating childbirth
CPT/HCPCS: 59025; 59050; 84112; 85025; 86780; 86850; 86900; 86901; 99221; J7120; G0378